=== PATIENT | female | born 1965 | race Caucasian/White ===

== ENCOUNTER → 2016-12-31 | Outpatient (CLI) | payer MEDICAID | LOC: BMCIMAGING 10:21 | PROVIDERS: ATTEND Family Medicine | DX: N64.4 Mastodynia (principal); N63 Unspecified lump in breast | CPT/HCPCS: G0204 ==

== ENCOUNTER → 2017-02-28 | Outpatient (CLI) | payer MEDICAID | LOC: BMCIMAGING 13:51 | PROVIDERS: ATTEND Family Medicine | DX: M53.3 Sacrococcygeal disorders, not elsewhere classified (principal) ==

== ENCOUNTER → 2017-09-17 | Outpatient (CLI) | payer MEDICAID | LOC: BMCIMAGING 16:13 | PROVIDERS: ATTEND Family Medicine | DX: R07.81 Pleurodynia (principal) | CPT/HCPCS: 71101-PO ==

== ENCOUNTER → 2017-11-03 | Outpatient (CLI) | payer MEDICAID | LOC: BMCIMAGING 11:01 | PROVIDERS: ATTEND Family Medicine | DX: Z13.820 Encounter for screening for osteoporosis (principal); M85.89 Other specified disorders of bone density and structure, multiple sites; Z78.0 Asymptomatic menopausal state; Z82.62 Family history of osteoporosis ==

== ENCOUNTER 2017-11-13 16:59 | Emergency (ER) | payer MEDICAID ==
--- NOTE | 2017-11-13 18:38 | EDPHY ---
H & P Time Seen by Provider: 11/13/17 18:08 HPI/ROS: CHIEF COMPLAINT: Reaction to jelly fish HISTORY OF PRESENT ILLNESS: The patient is a 50-year-old female who presents to the emergency department reporting reaction a jellyfish. The patient was in [place] on November 21. The patient reports that there were, thousands of jelly fish [place]. She was walking with barefoot. She tried to avoid a jellyfish. However, after walk she noticed some discomfort on the top of her foot. She has some mild numbness and tingling. On the seizure developed a diffuse rash. She had no shortness of breath. No throat swelling. She saw her primary care physician, Dr. Alvarado. She was placed on prednisone for 6 days. Patient states she approved on the prednisone but once off the prednisone she again worsened. She now complains of an intermittent rash. It was worse at night. She has no shortness of breath or chest pain. The patient states she felt strange coming up prednisone. REVIEW OF SYSTEMS: My complete review of systems is negative except as mentioned in the HPI. Past Medical/Surgical History: Includes fibromyalgia, skin cancer Past surgical history: The abdominal return Smoking Status: Never smoked Physical Exam: Vitals noted GENERAL: Well-appearing, in no acute distress, alert. HEENT: Eyes normal to inspection, normal pharynx, no signs of dehydration. No signs of rash NECK: No thyromegaly, no lymphadenopathy, supple. RESPIRATORY: Clear to auscultation bilaterally, no rales, rhonchi or wheezing. CVS: Regular rate and rhythm, no rubs, murmurs, or gallops. ABDOMEN: Soft, nontender, nondistended, no organomegaly. BACK: Normal to inspection, no CVA tenderness. SKIN: Normal color, warm, dry. No pallor. Patient had some mild erythema on her left wrist and forearm. There is also some mild erythema on her abdomen. No petechiae. No hives. EXTREMITIES: No pedal edema, no calf tenderness, no Homans sign or cords, no joint swelling. NEURO/PSYCH: Alert and oriented x3, normal mood and affect, normal motor sensory exam. No obvious cranial nerve deficit. Constitutional: Initial Vital Signs Temperature (C) 37.1 C 05/10/18 17:25 Heart Rate 85 05/10/18 17:25 Respiratory Rate 16 11/13/17 17:25 Blood Pressure 116/70 11/13/17 17:25 O2 Sat (%) 99 11/13/17 17:25 O2 Delivery Mode Room Air Allergies/Adverse Reactions: orange Allergy (Verified 11/13/17 17:23) Penicillins Allergy (Verified 11/13/17 17:23) soy Allergy (Verified 11/13/17 17:23) Home Medications: Medication Instructions Recorded Estrogens, Conjugated 11/13/17 Lamictal 11/13/17 Lorazepam 11/13/17 Progesterone 11/13/17 Xanax 11/13/17 predniSONE 20 mg PO DAILY 3 Days tab 11/13/17 Medical Decision Making ED Course/Re-evaluation: In the emergency department I discussed possible etiologies with the patient. I answered all her questions. Per research, the jellyfish is nontoxic the humans. I discussed options with the patient. She will be treated with repeat course of steroid. She is given prednisone 60 mg orally in the emergency department. She was given 3 days of 40 mg daily. She will return with worsening symptoms. She was given warnings prior to leaving Differential Diagnosis: My differential includes but is not limited to allergic reaction, anaphylaxis, toxin exposure, anxiety Departure - Departure Disposition: Home, Routine, Self-Care Clinical Impression: Rash Condition: Good Instructions: Acute Rash (ED) Additional Instructions: Return with increasing rash, shortness of breath, throat swelling, fever, or any other concerns Referrals: Azalia Alvarado MD [Primary Care Provider] - 5-7 days, if not improved Prescriptions: predniSONE 20 mg PO DAILY 3 Days tab
[2017-11-13] MEDS ORDERED: predniSONE 20 MG TAB PO ONE (18:40)
[2017-11-13 18:50] VITALS: BP 99/66
== END 2017-11-13 18:49 | disposition home or self-care (01) ==
DX: R21 Rash and other nonspecific skin eruption (principal); Z85.828 Personal history of other malignant neoplasm of skin
CPT/HCPCS: J7512

== ENCOUNTER → 2018-07-14 | Outpatient (CLI) | payer MEDICAID | LOC: BMCIMAGING 15:09 | PROVIDERS: ATTEND Family Medicine | DX: N85.00 Endometrial hyperplasia, unspecified (principal) ==

== ENCOUNTER → 2018-07-16 | Outpatient (CLI) | payer MEDICAID | LOC: FIMAGING 11:11 | PROVIDERS: ATTEND Family Medicine | DX: Z12.31 Encounter for screening mammogram for malignant neoplasm of breast (principal) ==

== ENCOUNTER → 2018-08-27 | Outpatient (CLI) | payer MEDICAID | LOC: FIMAGING 19:19 | PROVIDERS: ATTEND Orthopaedic Surgery | DX: M75.111 Incomplete rotator cuff tear or rupture of right shoulder, not specified as traumatic (principal); M25.811 Other specified joint disorders, right shoulder ==